=== PATIENT | female | born 1990 | race Caucasian/White ===

== ENCOUNTER 2019-10-17 11:13 | Outpatient (CLI) | payer OTHER, SELFPAY ==
--- NOTE | ~2019-10-17 | MR_ITS ---
MR breast BI wo con 10/17/2019 14:54 CDT INDICATION: Status post trauma. Evaluate for implant rupture. TECHNIQUE: MRI of the breasts perform using the following sequences: Axial T2 fast spin-echo, axial v ibrant, sagittal T2 fast spin echo, sagittal T2 STIR with silicone saturation, sagittal T2 STIR with water suppression. No contrast administered. COMPARISON: No comparison. FINDINGS: There is a small amount of periimplant fluid bilaterally, likely of no clinical significanc e. No evidence for intracapsular or extracapsular implant rupture. No breast parenchymal masses are i dentified. No axillary lymphadenopathy. IMPRESSION: 1: No findings to suggest intracapsular or extracapsular breast implant rupture. Reviewed, dictated and finalized at location A. IMPRESSION: 1: No findings to suggest intracapsular or extracapsular breast implant rupture .
== END 2019-10-17 11:14 | disposition home or self-care (01) ==
LOC: ANHIMG 11:18
PROVIDERS: PCP Surgery Plastic and Reconstructive Surgery; Visit Provider Surgery Plastic and Reconstructive Surgery
DX: S20.102A Unspecified superficial injuries of breast, left breast, initial encounter (principal); S20.101A Unspecified superficial injuries of breast, right breast, initial encounter; X58.XXXA Exposure to other specified factors, initial encounter
CPT/HCPCS: 77047

== ENCOUNTER 2022-09-13 13:44 | Outpatient (CLI) | payer OTHER, SELFPAY ==
--- NOTE | ~2022-09-13 | MR_ITS ---
EXAMINATION: MR breast BI wo con INDICATION: Breast implant status, possible breast implant rupture TECHNIQUE: Axial T2 FSE ASSET, axial VIBRANT, Sagittal T2 FSE, Sagittal T2 STIR silicone SAT, Sagitta l STIR Water suppression COMPARISON: 10/17/2019 FINDINGS: RIGHT BREAST: There is no evidence of breast implant rupture. Radial folds are noted in the implant. No evidence of signal abnormalities in the axillary or internal mammary node distributions. LEFT BREAST: There is no evidence of breast implant rupture. Radial folds are noted in the implant. N o evidence of signal abnormalities in the axillary or internal mammary node distributions.] IMPRESSION: 1. No evidence of breast implant rupture. Reviewed, dictated and finalized at location A.
== END 2022-09-13 13:45 | disposition home or self-care (01) ==
LOC: ANHIMG 13:52
PROVIDERS: PCP Surgery Plastic and Reconstructive Surgery; Visit Provider Surgery Plastic and Reconstructive Surgery
DX: Z98.82 Breast implant status (principal)
CPT/HCPCS: 77047